=== PATIENT | female | born 1970 | race American Indian/Alaskan Native ===

== ENCOUNTER 2019-03-22 08:20 | Emergency (ER) | payer MEDICARE ==
--- NOTE | 2019-03-22 10:06 | Emergency Department Report ---
ED Female HPI - General Chief complaint: Abdominal Pain Stated complaint: LFT SIDE KIDNEY PAIN/POSS UTI Time Seen by Provider: 03/22/19 09:14 Source: patient Mode of arrival: Ambulatory Limitations: No Limitations - History of Present Illness Initial comments: 48 yo F with hx of arthritis, fibromyalgia, diabetes, HTN, presents to ED with complaint of urinary frequency, lower abdominal pain. Pt reports onset of symptoms 5 days ago. Also reports her menstrual period began 2 days later. Pt believes she may have a UTI. She reports right flank pain x 1 month. -: days(s) (5) Radiation: suprapubic Severity: moderate Quality: cramping Consistency: constant Improves with: none Worsens with: none Are you Now?: No Associated Symptoms: abdominal pain. denies: nausea/vomiting, fever/chills, dysuria - Related Data Home Medications Medication Instructions Recorded Confirmed Last Taken Cyclobenzaprine [Flexeril 10 MG 10 mg PO DAILY 08/13/13 05/11/14 05/10/14 TAB] Insulin Aspart (Nf) [NovoLOG 15 unit SQ TID 08/13/13 05/11/14 05/11/14 Flexpen] Insulin Glargine,Hum.rec.anlog 30 unit SQ QHS 08/13/13 05/11/14 05/10/14 [Lantus Solostar] predniSONE [Deltasone] 5 mg PO BID 08/13/13 05/11/14 05/11/14 Atorvastatin [Lipitor] 40 mg PO QHS 05/11/14 05/11/14 05/11/14 Nortriptyline 25 mg PO QHS PRN 05/11/14 05/11/14 05/11/14 hydroCHLOROthiazide [HCTZ] 12.5 mg PO DAILY 05/11/14 05/11/14 05/11/14 Previous Rx's Medication Instructions Recorded Last Taken Type Cyclobenzaprine [Flexeril 10 MG 10 mg PO TID PRN #20 tablet 08/14/13 05/10/14 Rx TAB] Ciprofloxacin HCl [Ciprofloxacin 500 mg PO Q12HR 10 Days #20 tab 03/22/19 Unknown Rx TAB] Naproxen [Naprosyn] 500 mg PO BID #20 tablet 03/22/19 Unknown Rx Allergies Allergy/AdvReac Type Severity Reaction Status Date / Time acetaminophen [From Lortab] Allergy Itching Verified 05/11/14 18:46 hydrocodone Allergy Itching Verified 05/11/14 18:46 hydrocodone bitartrate Allergy Itching Verified 05/11/14 18:46 [From Lortab] morphine Allergy Itching Verified 05/11/14 18:46 oxycodone HCl [From Percocet] Allergy Itching Verified 05/11/14 18:46 tramadol Allergy Itching Verified 05/11/14 18:46 ED Review of Systems ROS: Stated complaint: LFT SIDE KIDNEY PAIN/POSS UTI Other details as noted in HPI Comment: All other systems reviewed and negative Constitutional: denies: chills, fever Gastrointestinal: abdominal pain. denies: nausea, vomiting, diarrhea Genitourinary: frequency Musculoskeletal: back pain ED Past Medical Hx - Past Medical History Previous Medical History?: Yes Hx Hypertension: Yes Hx Diabetes: Yes Hx Arthritis: Yes Additional medical history: fibromyalgia. sarcoidosis - Surgical History Past Surgical History?: Yes Hx Cholecystectomy: Yes Additional Surgical History: tubal ligation - Social History Smoking Status: Never Smoker Substance Use Type: Alcohol - Medications Home Medications: Home Medications Medication Instructions Recorded Confirmed Last Taken Type Cyclobenzaprine [Flexeril 10 MG 10 mg PO DAILY 08/13/13 05/11/14 05/10/14 History TAB] Insulin Aspart (Nf) [NovoLOG 15 unit SQ TID 08/13/13 05/11/14 05/11/14 History Flexpen] Insulin Glargine,Hum.rec.anlog 30 unit SQ QHS 08/13/13 05/11/14 05/10/14 History [Lantus Solostar] predniSONE [Deltasone] 5 mg PO BID 08/13/13 05/11/14 05/11/14 History Cyclobenzaprine [Flexeril 10 MG 10 mg PO TID PRN #20 tablet 08/14/13 05/11/14 05/10/14 Rx TAB] Atorvastatin [Lipitor] 40 mg PO QHS 05/11/14 05/11/14 05/11/14 History Nortriptyline 25 mg PO QHS PRN 05/11/14 05/11/14 05/11/14 History hydroCHLOROthiazide [HCTZ] 12.5 mg PO DAILY 05/11/14 05/11/14 05/11/14 History Ciprofloxacin HCl [Ciprofloxacin 500 mg PO Q12HR 10 Days #20 tab 03/22/19 Unknown Rx TAB] Naproxen [Naprosyn] 500 mg PO BID #20 tablet 03/22/19 Unknown Rx ED Physical Exam - General Limitations: No Limitations General appearance: alert, in no apparent distress - Head Head exam: Present: atraumatic, normocephalic - Eye Eye exam: Present: normal appearance - ENT ENT exam: Present: mucous membranes moist - Neck Neck exam: Present: normal inspection - Respiratory Respiratory exam: Present: normal lung sounds bilaterally. Absent: respiratory distress - Cardiovascular Cardiovascular Exam: Present: regular rate, normal rhythm - GI/Abdominal GI/Abdominal exam: Present: soft, tenderness (suprapubic). Absent: distended - Extremities Exam Extremities exam: Present: normal inspection - Back Exam Back exam: Present: CVA tenderness (R) - Neurological Exam Neurological exam: Present: alert, oriented X3 - Psychiatric Psychiatric exam: Present: normal affect, normal mood - Skin Skin exam: Present: warm, dry, intact, normal color ED Course Vital Signs 03/22/19 03/22/19 03/22/19 08:31 08:35 08:43 Temperature 97.7 F Pulse Rate 104 H 108 H Respiratory 16 20 Rate Blood Pressure 185/103 Blood Pressure 185/103 [Right] O2 Sat by Pulse 99 100 Oximetry ED Medical Decision Making - Medical Decision Making 48 yo F w/ urinary frequency, abdominal pain. UA shows evidence of UTI. RBCs likely due to the fact that she is currently on her menstrual period. Pt does have mild right flank pain, although pt reports it began 1 month ago. Due to UTI and flank pain will treat as pyelonephritis. Pt is afebrile. She is also hypertensive, however, pt has hx of HTN and reports she did not take her BP meds this AM. I advised her to take her blood pressure meds when she gets home. Will give prescription for antibiotics. Advised outpt f/u. Return precautions given. Critical care attestation.: If time is entered above; I have spent that time in minutes in the direct care of this critically ill patient, excluding procedure time. ED Disposition Clinical Impression: Pyelonephritis, UTI (urinary tract infection) Disposition: TO HOME OR SELFCARE Is pt being admited?: No Condition: Stable Instructions: Acute Pyelonephritis (ED) Prescriptions: Ciprofloxacin HCl [Ciprofloxacin TAB] 500 mg PO Q12HR 10 Days #20 tab Naproxen [Naprosyn] 500 mg PO BID #20 tablet Referrals: VEE CRUZ MD [Primary Care Provider] - 3-5 Days Time of Disposition: 10:26
[2019-03-22] MEDS ORDERED: KETOROLAC 30 MG/1 ML INJ IM ONE (10:10)
[2019-03-22 10:17] LABS: Bacteria,Urine 4+ /HPF (Negative); Bilirubin,Urine NEG (Negative); Blood,Urine LG (Negative); Color,Urine Red (Yellow); Mucus,Urine FEW /HPF; Urobilinogen,Urine < 2.0 mg/dL (<2.0)
[2019-03-22 10:20] LABS: RBC,Urine > 182.0 /HPF (0.0-6.0); WBC,Urine > 182.0 /HPF (0.0-6.0)
[2019-03-22 10:27] LABS: HCG Qualitative,Urine Negative (Negative)
[2019-03-22 10:55] VITALS: BP 184/90
== END 2019-03-22 10:57 | disposition home or self-care (01) ==
LOC: ED 08:20
DX: N10 Acute pyelonephritis (principal); N39.0 Urinary tract infection, site not specified; I10 Essential (primary) hypertension; E11.9 Type 2 diabetes mellitus without complications; M19.90 Unspecified osteoarthritis, unspecified site; M79.7 Fibromyalgia; F10.20 Alcohol dependence, uncomplicated; Z98.51 Tubal ligation status; Z79.899 Other long term (current) drug therapy; Z88.6 Allergy status to analgesic agent; Z88.4 Allergy status to anesthetic agent; Z88.8 Allergy status to other drugs, medicaments and biological substances
CPT/HCPCS: 81001; 81025; 96372; 99283; J1885